=== PATIENT | male | born 1925 | race Caucasian/White ===

== ENCOUNTER 2016-10-16 10:49 | Inpatient (IN) | payer MEDICARE ==
[~2016-10-16] VITALS: Ht 167.6 cm; Wt 70.0 kg
[2016-11-03] MEDS ORDERED: LEVO50TA4 PO (11:42)
[2016-11-03] MEDS ORDERED: TAMS0.4C4 PO (11:42)
[2016-11-03] MEDS ORDERED: OXYC1CAP PO (11:42)
[2016-11-03] MEDS ORDERED: IBUP200T2 PO (11:42)
[2016-11-03] MEDS ORDERED: LOVA40TA PO (11:42)
[2016-11-03] MEDS ORDERED: AMIT1TAB79 PO (11:42)
[2016-11-03] MEDS ORDERED: D31000TA PO (11:42)
[2016-11-03] MEDS ORDERED: MORP1TAB24 PO (11:42)
[2016-11-03] MEDS ORDERED: MULT-135 PO (11:42)
[2016-11-04 09:29] VITALS: BP 164/78; PULSE 74; RESP 18; TEMP 97.5; O2SAT 100
[2016-11-04] MEDS ORDERED: METOPROLOL TARTRATE 25 MG TAB PO PRN (09:30)
[2016-11-04] MEDS ORDERED: LACTATED RINGER'S 1000 ML IV SCH (09:30)
[2016-11-04] MEDS ORDERED: SODIUM CHLORID 0.9% 500 ML IV SCH (09:30)
[2016-11-04] MEDS ORDERED: INSULIN HUMAN REGULAR 1,000 UNITS/10 ML VIAL SQ PRN (09:30)
--- NOTE | 2016-11-04 09:35 | MH ---
cc: JR BLUM DATE OF ADMISSION 11/04/2016 ADMISSION DIAGNOSIS Left hip osteoarthritis HISTORY This is an 89-year-old male with severe left hip pain and difficulty with ambulation. The patient has evidence of collapse of the left femoral head and signs likely consistent with avascular necrosis. The patient presents for surgical treatment. PAST MEDICAL HISTORY, SOCIAL HISTORY AND FAMILY HISTORY, REVIEW OF SYSTEMS See attached notes. PHYSICAL EXAMINATION An elderly male in severe distress with his left hip. HEENT: Normocephalic, atraumatic. Pupils equal, round, reactive to light and accommodation. Extraocular motions intact. NECK: Supple. CHEST: Clear. HEART: Regular rate and rhythm. ABDOMEN: Soft, nontender, normoactive bowel sounds. MUSCULOSKELETAL: Left hip pain with range of motion especially with internal and external rotation, shortening left leg compared to the right is seen. Mild flexion contracture. NEUROLOGIC AND VASCULAR: Examinations are within normal limits. IMPRESSION Osteoarthritis of the left hip. PLAN Left total hip replacement arthroplasty, direct anterior exposure. CONSENT The risks of surgery including infection, bleeding, loss of motion, continued pain, need for further surgery, neurologic and vascular injury, the patient understands these issues and wishes to press on with surgery as outlined above. MD JOHN Wing/MANUELA /10:43 PM /9:31 AM
[2016-11-04] MEDS ORDERED: VANCOMYCIN HCL 1000 MG VIAL ONE (09:49)
[2016-11-04] MEDS ORDERED: SODIUM CHLOR 0.9% 250 ML INJ 250 ML ONE (09:50)
[2016-11-04] MEDS: SODIUM CHLORIDE 0.9% IV SCH ×2 (10:00→12:17)
[2016-11-04] MEDS: TRANEXAMIC ACID IV SCH ×2 (10:00→12:17)
[2016-11-04] MEDS: POVIDONE IODINE 7.5% SCRUB 118 ML BOTTLE TOP SCH (10:00)
[2016-11-04] MEDS: EXPAREL PERI-ARTICULAR INJECTION (TOTAL VOL. 60 ML) P-ARTICULR SCH ×4 (10:00→12:33)
[2016-11-04] MEDS ORDERED: VANCOMYCIN 1000 MG/NS 250 ML (for <70 kg) IV SCH ×2 (10:00)
[2016-11-04] MEDS ORDERED: ceFAZolin 2 GM PREMIX 50 ML IV SCH (10:00)
[2016-11-04] MEDS ORDERED: GENTAMICIN SULFATE 80 MG/2 ML VIAL ONE (10:45)
[2016-11-04] MEDS ORDERED: PHENYLEPH/NS 1000 MCG/10 ML SYR IV ONE (11:00)
[2016-11-04] MEDS ORDERED: LACTATED RINGER'S 1000 ML INJ 1,000 ML IV ONE (11:00)
[2016-11-04] MEDS ORDERED: ePHEDrine/NS 50 MG/5 ML SYR IV ONE (11:00)
[2016-11-04] MEDS ORDERED: PROPOFOL 200 MG/20 ML AMP IV ONE (11:00)
--- NOTE | 2016-11-04 14:24 | PD.OP ---
cc: Cody Padilla MD Operative Report Date of Surgery: Nov 04, 2016 Preoperative Diagnosis: Avascular necrosis, left hip. Osteoarthritis left hip, severe Postoperative Diagnosis: Same Procedure: Left total hip replacement arthroplasty, direct anterior exposure Anesthesia: Gen. Surgeon: Cody Padilla English As A Second Language Instructor(s): INES Winslow Operation and Findings: EBL: 400 cc INDICATION: This patient presents with significant hip pain related to severe osteoarthritis of the left hip with some evidence of avascular necrosis.. Despite extensive conservative care this patient continues to be painful and now presents for surgical treatment. NOTE: Padmini Winslow PA-C was present for the entire surgical procedure as my sugar laboratory assistant. In my medical opinion her skill and care was necessary for the proper management of this patient. COMPONENTS: COMPANY: [employer] CUP: Saline, 54 mm, 100 series, gription surface LINER: Altrx 36 mm, neutral STEM: Corail, size 11, standard offset, hydroxyapatite-coated HEAD: +12 mm, 36 mm, 12/14 taper PROCEDURE: This patient was brought to the operating room and anesthetized in the supine position and positioned on the fracture table with both legs held extended. The left hip and leg was scrubbed with alcohol followed by Hibiclens followed by ChloraPrep and draped sterilely. Antibiotics were given within routine time window and a timeout was done. A 4 inch incision was made starting 2 cm distal and 2 cm lateral to the anterior superior iliac spine. The fascia tara was opened longitudinally. The interval between the fascia tara and the rectus was opened down to the capsule of the hip joint. Retractors were positioned allowing good visualization of the capsule. This was opened longitudinally and flaps were created. Stay sutures were utilized. Exposure was excellent. The neck was cut at the proper location using fluoroscopy as a guide. The head was removed. Deep retractors were positioned allowing good visualization of the acetabulum. Acetabulum was deepened down to the floor starting with a proper size reamer and reaming up to 53 mm. A trial was utilized. Fluoroscopy was used to check position and confirmed satisfactory alignment. The rim was reamed with a 54 mm reamer and the final cup was positioned in approximately 20 of anteversion and 40-45 of abduction. Position was satisfactory. A single hole eliminator was positioned followed by the final liner. The lifting hook was utilized. The leg was dropped to the floor, maximally externally rotated and brought across the midline. Retractors were positioned. A box osteotome was utilized followed by progressive broaching to the proper stem size. Trial reduction showed excellent alignment and fit. With 60 of external rotation the leg was dropped to the floor without evidence of anterior subluxation. The wound was irrigated. The final stem was inserted and was found to be very stable. The final reduction using the final head. Stability was as previously noted. Intraoperative x-rays were taken. The wound was irrigated copiously. Hemostasis was controlled. Local anesthesia was utilized. The capsule was repaired with #2 Tycron sutures. The fascia tara was repaired with running 0 PDS on a loop. Subcutaneous tissue was approximated with 2-0 Vicryl and skin with running intradermal 3-0 Vicryl followed by Steri-Strips. A sterile dressing was applied. The patient was awakened and taken to the recovery room in satisfactory condition. FINDINGS: There was severe osteoarthritis of the left hip. Acetabular dysplasia was noted. A large central osteophyte was removed with the reamers allowing satisfactory positioning of the acetabular component. No complication was appreciated Cody Padilla MD Nov 04, 2016 14:24
[2016-11-04] MEDS ORDERED: XARE10TA PO (14:26)
[2016-11-04] MEDS ORDERED: OXYC1TAB63 PO (14:26)
[2016-11-04] MEDS ORDERED: NALOXONE HCL 0.4 MG/ML AMP IV PRN (14:30)
[2016-11-04] MEDS ORDERED: TEMAZEPAM 15 MG CAP PO PRN (14:30)
[2016-11-04] MEDS ORDERED: BISACODYL 10 MG SUPP PR PRN (14:30)
[2016-11-04] MEDS ORDERED: MORPHINE SULFATE 8 MG/ML INJ IV PUSH PRN (14:30)
[2016-11-04] MEDS ORDERED: ONDANSETRON HCL 4 MG/2 ML VIAL IVP PRN (14:30)
[2016-11-04] MEDS ORDERED: SODIUM CHLORIDE 0.9% FLUSH 5 ML FLUSH IVF PRN (14:30)
[2016-11-04] MEDS ORDERED: Post-op Orders (for Pharmacy) MISC XX ONE (14:30)
[2016-11-04] MEDS ORDERED: oxyCODONE/ACETAMINOPHEN 5 MG/325 MG TAB PO PRN (14:30)
[2016-11-04] MEDS ORDERED: ALUMINUM/MAGNESIUM/SIMETH 30 ML CUP PO PRN (14:30)
--- NOTE | 2016-11-04 15:09 | RADRPT ---
EXAM DATE/TIME: 11/04/2016 12:58 [facility] COMPARISON: No previous studies available for comparison. INDICATIONS : Left anterior hip replacement. MEDICAL HISTORY : Hypertension. SURGICAL HISTORY : Total hip replacement, right. ENCOUNTER: Initial ACUITY: 1 day PAIN SCORE: Non-responsive. LOCATION: Left hip. FINDINGS: Two views from the OR have been obtained. There is a bipolar hip prosthesis. This is labeled left. This appears in good position. Skin heather are seen. CONCLUSION: Successful placement of a bipolar hip prosthesis. Trevor Cedeno MD on November 04, 2016 at 15:00 Board Certified Radiologist. This report was verified electronically.
[2016-11-04] MEDS ORDERED: MORPHINE SULFATE 30 MG/30 ML PCA IV SCH (16:00)
[2016-11-04] MEDS: LACTATED RINGER'S 1000 ML INJ 1,000 ML IV SCH (16:00)
[2016-11-04] MEDS ORDERED: DO NOT ADM ANY ANTICOAGULANT DRUGS XX PRN (16:00)
[2016-11-04] MEDS ORDERED: *morphine SULFATE 8 MG/ML PERIprocedure ONLY ONE (17:49)
[2016-11-04 20:02] VITALS: BP 164/73; PULSE 86; RESP 18; TEMP 96.4; O2SAT 100
[2016-11-04] MEDS: SODIUM CHLORIDE 0.9% FLUSH 5 ML FLUSH IVF SCH (21:00)
[2016-11-04] MEDS: PCA - TOTAL MG MORPHINE DELIVERED PER SHIFT SCH (22:00)
[2016-11-04] MEDS: TAMSULOSIN HCL 0.4 MG CAP PO SCH (22:45)
[2016-11-04] MEDS: AMITRIPTYLINE HCL 100 MG TAB PO SCH (22:45)
[2016-11-05] VITALS (7 sets, daily range): BP systolic 103–124; BP diastolic 53–64; PULSE 72–89; RESP 16–18; TEMP 96–99.7; O2SAT 97–100
[2016-11-05] MEDS: LACTATED RINGER'S 1000 ML INJ 1,000 ML IV SCH ×2 (04:30→17:47)
[2016-11-05] MEDS: LEVOTHYROXINE SODIUM 50 MCG TAB PO SCH (05:04)
[2016-11-05] MEDS: PCA - TOTAL MG MORPHINE DELIVERED PER SHIFT SCH (05:08)
[2016-11-05 06:57] LABS: HEMATOCRIT 26.6 % (39.0-51.0); REVIEW FLAG FINAL
[2016-11-05] MEDS: MORPHINE SULFATE 15 MG CONTROLLED RELEASE TAB PO SCH (09:00)
[2016-11-05] MEDS: PRAVASTATIN SOD 40 MG TAB PO SCH (09:17)
[2016-11-05] MEDS: SODIUM CHLORIDE 0.9% FLUSH 5 ML FLUSH IVF SCH ×2 (09:17→21:00)
[2016-11-05] MEDS: POVIDONE IODINE 7.5% SCRUB 118 ML BOTTLE TOP SCH (09:17)
[2016-11-05] MEDS: MULTIVITAMIN TAB PO SCH (09:17)
[2016-11-05] MEDS ORDERED: WALKER WHEELS/F1 MIS (12:30)
[2016-11-05] MEDS ORDERED: MISC-163 (12:30)
--- NOTE | 2016-11-05 13:15 | PD.ORT.PN ---
Subjective Subjective Remarks Somewhat groggy. Spoke freely but closed eyes frequently. Leg pain moderately controlled with moderate aching. No new radiating leg pain. Tolerating liquids. Urinating well. No CP or SOB. Objective Vitals Vital Signs Date Time Temp Pulse Resp B/P Pulse Ox O2 Delivery O2 Flow Rate FiO2 11/05/16 08:00 96.0 73 18 103/53 100 11/05/16 04:06 96.0 79 17 103/53 97 11/05/16 00:01 96.0 89 17 124/64 99 11/04/16 20:02 96.4 86 18 164/73 100 11/04/16 18:30 98.0 97 15 119/76 99 Nasal Cannula 3 11/04/16 18:15 81 15 159/83 99 Nasal Cannula 3 11/04/16 17:45 79 17 152/80 99 Nasal Cannula 3 11/04/16 17:15 75 15 153/77 99 Nasal Cannula 3 11/04/16 16:15 68 16 143/73 99 Nasal Cannula 3 11/04/16 16:03 15 11/04/16 15:45 67 16 138/68 100 Nasal Cannula 3 11/04/16 15:30 66 15 127/64 100 Nasal Cannula 3 11/04/16 15:15 66 15 129/62 100 Nasal Cannula 3 11/04/16 15:00 62 15 106/59 99 Nasal Cannula 3 11/04/16 14:45 64 15 104/64 99 Nasal Cannula 3 11/04/16 14:37 97.8 91 15 102/58 99 Nasal Cannula 3 I/O 11/04/16 11/04/16 11/04/16 11/05/16 11/05/16 11/05/16 07:00 15:00 23:00 07:00 15:00 23:00 Intake Total 1800 ml 1198 ml 789 ml Output Total 1000 ml 550 ml 375 ml Balance 800 ml 648 ml 414 ml Intake Oral 240 ml 240 ml IV Total 958 ml 549 ml Other 1800 ml Output Urine Total 600 ml 550 ml 375 ml Estimated Blood Loss 400 ml # Bowel Movements 1 0 Result Diagram: 11/05/16 0606 Objective Remarks Sitting up in bed, groggy no acute distress vss LLE Dressing c/d/i, no drainage, mild swelling, no ecchymosis thigh and calf supple, neg homans +motor at, +sens, +nvi Assessment & Plan Ortho Post Op Day #: 1 Problem List: Assessment and Plan pod#1 s/p L YELITZA, anterior D/C [employer] - change to po pain meds. He was already on morphine and oxycodone preop. Hold dressing changes unless saturated. PT - WBAT LLE. Anterior yelitza precautions. Xarelto 10mg qd. D/C planning, prefers HHC but likely SNF thursday. DME written. Louise Argueta Nov 05, 2016 13:14
[2016-11-05] MEDS: RIVAROXABAN 10 MG TAB PO SCH (14:00)
[2016-11-05] MEDS: oxyCODONE/ACETAMINOPHEN 5 MG/325 MG TAB PO PRN (17:47)
[2016-11-05] MEDS ORDERED: TAMSULOSIN HCL 0.4 MG CAP PO ONE (20:15)
[2016-11-05] MEDS: AMITRIPTYLINE HCL 100 MG TAB PO SCH (21:07)
[2016-11-05] MEDS: DOCUSATE SODIUM 100 MG CAP PO SCH (21:07)
[2016-11-05] MEDS: TAMSULOSIN HCL 0.4 MG CAP PO SCH (21:10)
[2016-11-06] VITALS (7 sets, daily range): BP systolic 117–153; BP diastolic 58–73; PULSE 79–85; RESP 17–20; TEMP 96–97.4; O2SAT 96–99
[2016-11-06 05:21] LABS: HEMATOCRIT 24.8 % (39.0-51.0); REVIEW FLAG FINAL
[2016-11-06] MEDS: LEVOTHYROXINE SODIUM 50 MCG TAB PO SCH (06:24)
[2016-11-06] MEDS: SODIUM CHLORIDE 0.9% FLUSH 5 ML FLUSH IVF SCH ×2 (09:00→20:11)
--- NOTE | 2016-11-06 09:10 | HHI.DCPOC ---
Discharge Care Plan Diagnosis: (1) Left hip pain (2) Osteoarthritis of left hip Your Health Problems Are: Incision/Drains Goals to Promote Your Health * To prevent worsening of your condition and complications * To maintain your health at the optimal level Directions to Meet Your Goals Take your medications as prescribed Follow your dietary instruction Follow activity as directed Keep your appointments as scheduled Take your immunizations and boosters as scheduled If your symptoms worsen call your PCP, if no PCP go to Urgent Care Center or Emergency Room Smoking is Dangerous to Your Health. Avoid second hand smoke Call the 24-hour hour crisis hotline for domestic abuse at Louise Argueta Nov 06, 2016 09:10
--- NOTE | 2016-11-06 09:12 | HHI.DS ---
Discharge Summary Admission Date Nov 04, 2016 at 08:31 Discharge Date: Nov 07, 2016 Admitting Diagnosis see below Diagnosis: (1) Left hip pain Diagnosis: Principal (2) Osteoarthritis of left hip Diagnosis: Principal Procedures Left total hip arthroplasty, Direct anterior approach Brief History This is a 89 year old male patient with a long history of left hip pain. He sought out medial treatment and imaging studies were performed. He was found to have significant arthritis of the left hip. Conservative measures were pursued for a period of time but he continued to decline. Surgical treatment was recommended and he elected to move forward with total hip arthroplasty. CBC/BMP: 11/06/16 0449 Significant Findings Laboratory Tests Test 11/05/16 11/06/16 06:06 04:49 Hemoglobin 8.9 GM/DL 8.4 GM/DL (13.0-17.0) (13.0-17.0) Hematocrit 26.6 % 24.8 % (39.0-51.0) (39.0-51.0) PE at Discharge Sitting up in bed, groggy no acute distress vss LLE Dressing c/d/i, no drainage, mild swelling, no ecchymosis thigh and calf supple, neg homans +motor at, +sens, +nvi Hospital Course Surgical treatment was performed on the day of admission without complication. He recovered well in PACU and was transferred to the orthopaedic floor. Pain was controlled with IV and oral medications. DVT prophylaxis was initiated pod# 1. Patient appeared sedated pod#1 so IV medications were discontinued. He was compliant with physical therapy and all total hip precautions. After 3 days he was found to be stable and discharged to group home and instructed to pursue a high fiber diet and to continue therapy. Pt Condition on Discharge: Stable Discharge Disposition: Discharge to SNF Discharge Instructions Diet Instructions: As Tolerated, No Restrictions, High Fiber Diet Activities You Can Perform: Weight Bearing as Rj Activities to Avoid: Strenuous Activity New Medications: 3-in-1 Bedside Toilet (3-in-1 Bedside Toilet) 1 Mis Mis 1 EA .ROUTE DIRECTED #1 EA Walker with Front Wheels (Walker with Front Wheels) 1 Mis Mis 1 EA .ROUTE DIRECTED #1 Ref 0 EA Oxycodone-Acetaminophen (Oxycodone-Acetaminophen) 5-325 mg Tab 1 TAB PO Q4H PRN PAIN LESS THAN 5 ON SCALE #60 TAB Rivaroxaban (Xarelto) 10 Mg Tab 10 MG PO Q24H Prevent Blood Clot #25 TAB Continued Medications: Amitriptyline HCl (Elavil) 25 Mg Tab 100 MG PO HS Cholecalciferol (D3) 1,000 Unit Tab 1 TAB PO DAILY Levothyroxine (Levothyroxine) 50 Mcg Tab 50 MCG PO DAILY Thyroid #30 Ref 0 TAB Lovastatin (Lovastatin) 40 Mg Tab 40 MG PO DAILY Cholesterol Management #30 Ref 0 TAB Morphine ER (Morphine ER) 15 Mg Tab 15 MG PO DAILY Pain Management Ref 0 TAB Multiple Vitamin (Multi Vitamin) 1 Tab Tab 1 TAB PO DAILY TAB Oxycodone (Oxycodone) 5 Mg Cap 5 MG PO Q8H PRN PAIN Ref 0 CAP Tamsulosin (Tamsulosin) 0.4 Mg Cap 0.4 MG PO HS Manage Prostate Problems #30 Ref 0 CAP Discontinued Medications: Ibuprofen (Ibuprofen) 200 Mg Tab 200 MG PO TID PRN PAIN SCALE 1 TO 10 Ref 0 TAB Louise Argueta Nov 06, 2016 09:12
[2016-11-06] MEDS: PRAVASTATIN SOD 40 MG TAB PO SCH (09:13)
[2016-11-06] MEDS: DOCUSATE SODIUM 100 MG CAP PO SCH ×2 (09:13→20:11)
[2016-11-06] MEDS: TAMSULOSIN HCL 0.4 MG CAP PO SCH ×2 (09:13→20:11)
[2016-11-06] MEDS: MULTIVITAMIN TAB PO SCH (09:13)
--- NOTE | 2016-11-06 09:16 | PD.ORT.PN ---
Subjective Subjective Remarks Less groggy but still appears sedated. RN states he had an episode of signfiicant confusion last night. Again he spoke freely but closed eyes frequently during conversation. Leg pain controlled when in bed. Most discomfort is with transitions and PT. Apparently he was retaining urine yesterday so patient was straight cath'd. We placed him on Flomax daily. He is doing much better today and urinating well. No CP or SOB. Objective Vitals Vital Signs Date Time Temp Pulse Resp B/P Pulse Ox O2 Delivery O2 Flow Rate FiO2 11/06/16 09:05 96 21 11/06/16 08:00 96.7 80 18 121/65 99 11/06/16 07:35 Room Air 11/06/16 00:30 97.4 85 17 117/58 98 11/05/16 20:00 99.7 78 16 117/61 98 11/05/16 16:00 98.8 80 18 110/55 99 11/05/16 12:46 98 Nasal Cannula 2.00 11/05/16 12:00 96.0 72 18 122/56 98 I/O 11/05/16 11/05/16 11/05/16 11/06/16 11/06/16 11/06/16 07:00 15:00 23:00 07:00 15:00 23:00 Intake Total 789 ml 480 ml 904 ml Output Total 375 ml 90 ml 100 ml Balance 414 ml 390 ml 804 ml Intake Oral 240 ml 480 ml 480 ml IV Total 549 ml 424 ml Output Urine Total 375 ml 90 ml 100 ml # Voids 3 # Bowel Movements 0 0 0 Result Diagram: 11/06/16 0449 Procedures Left total hip arthroplasty, Direct anterior approach Objective Remarks Laying in bed, somewheat groggy, answers questions but eyes close frequently, no acute distress vss LLE Dressing c/d/i, no drainage, mild swelling, no ecchymosis thigh and calf supple, neg homans +motor at, +sens, +nvi Assessment & Plan Ortho Post Op Day #: 2 Problem List: (1) Left hip pain (2) Osteoarthritis of left hip Assessment and Plan pod#2 s/p L YELITZA, anterior Appears to be doing well though still somewhat sedated. At this point he is only taking his preop pain medications when include PO morphine and oxycodone. Hg 8.4 (down from 8.9) - due to age, lethargy, and episode of hypotension last night we will transfuse with 1 unit of PRBCS. Repeat hg/hct tomorrow. Hold dressing changes unless saturated. PT - WBAT LLE. Anterior yelitza precautions. Xarelto 10mg qd. D/C planning - though he prefers HHC I am not convinced that would be safe considering his lack of lucidity and episode of confusion. D/C likely thursday - HHC vs. SNF. He states he has a son and at home. DME written. Louise Argueta Nov 06, 2016 09:16
[2016-11-06] MEDS: MORPHINE SULFATE 15 MG CONTROLLED RELEASE TAB PO SCH (09:17)
[2016-11-06] MEDS: POVIDONE IODINE 7.5% SCRUB 118 ML BOTTLE TOP SCH (09:17)
--- NOTE | 2016-11-06 09:22 | HHI.FF ---
Face to Face Verification Diagnosis: (1) Left hip pain (2) Osteoarthritis of left hip Physical Therapy Gait training, Safety evaluation, Transfer training, bed to chair Hip: Total hip, Protocol: Left, Progress to weight bearing Left LE Weight Bearing: WB as tolerated Additional Instructions PT 5 days/wk for 2 weeks. WBAT Left LE. Anterior kira precautions. Walker as needed. Nursing RN Days per Week: 2 x Week(s): 1 Dressing Changes: Do not change dressing Additional Instructions Vitals assessment, dressing assessment - do not change unless saturated. Ok to shower pod#6 if kept sealed and dry. I have seen patient Trevor FranzJr milagros on 11/06/16. My clinical findings support the need for the requested home health care services because: Limited ability to care for self High risk of falls I certify that my clinical findings support that this patient is homebound because: Post-op weakness Unsteady gait/balance Louise Argueta Nov 06, 2016 09:22
[2016-11-06] MEDS: oxyCODONE/ACETAMINOPHEN 5 MG/325 MG TAB PO PRN (14:14)
[2016-11-06] MEDS: RIVAROXABAN 10 MG TAB PO SCH (14:14)
[2016-11-06] MEDS: LACTATED RINGER'S 1000 ML INJ 1,000 ML IV SCH (17:08)
[2016-11-06] MEDS: MAGNESIUM HYDROXIDE SUSP 30 ML CUP PO PRN (20:11)
[2016-11-06] MEDS: AMITRIPTYLINE HCL 100 MG TAB PO SCH (20:11)
[2016-11-07] VITALS: BP 146/81; PULSE 78; RESP 20; TEMP 98.4; O2SAT 97
[2016-11-07] MEDS: LACTATED RINGER'S 1000 ML INJ 1,000 ML IV SCH ×2 (03:18→19:00)
[2016-11-07 05:07] LABS: REVIEW FLAG FINAL
[2016-11-07] MEDS: LEVOTHYROXINE SODIUM 50 MCG TAB PO SCH (05:18)
[2016-11-07 08:00] VITALS: BP 157/83; PULSE 83; RESP 18; TEMP 97.6; O2SAT 95
[2016-11-07] MEDS: MORPHINE SULFATE 15 MG CONTROLLED RELEASE TAB PO SCH (08:48)
[2016-11-07] MEDS: DOCUSATE SODIUM 100 MG CAP PO SCH ×2 (08:48→21:59)
[2016-11-07] MEDS: MULTIVITAMIN TAB PO SCH (08:49)
[2016-11-07] MEDS: SODIUM CHLORIDE 0.9% FLUSH 5 ML FLUSH IVF SCH ×2 (08:49→21:00)
[2016-11-07] MEDS: TAMSULOSIN HCL 0.4 MG CAP PO SCH ×2 (08:49→21:59)
[2016-11-07] MEDS: PRAVASTATIN SOD 40 MG TAB PO SCH (08:49)
[2016-11-07] MEDS: MAGNESIUM HYDROXIDE SUSP 30 ML CUP PO PRN (08:49)
--- NOTE | 2016-11-07 09:27 | PD.ORT.PN ---
Subjective Subjective Remarks Grogginess the same as previous interactions. Apparently he was interacting with the staff yesterday after he received the blood but has been more lethargic and groggy today. Again he spoke freely but closed eyes frequently during conversation. He states his left hip pain is well controlled. No new radiating leg pain. He continues to urinate well. No CP or SOB. Objective Vitals Vital Signs Date Time Temp Pulse Resp B/P Pulse Ox O2 Delivery O2 Flow Rate FiO2 11/07/16 08:00 97.6 83 18 157/83 95 11/07/16 06:46 Room Air 11/07/16 00:00 98.4 78 20 146/81 97 11/06/16 20:00 97.2 84 20 153/73 96 11/06/16 16:00 96.0 82 18 128/66 99 11/06/16 11:00 97.3 79 18 150/69 98 11/06/16 10:45 97.2 80 18 118/58 96 I/O 11/06/16 11/06/16 11/06/16 11/07/16 11/07/16 11/07/16 07:00 15:00 23:00 07:00 15:00 23:00 Intake Total 1205 ml 280 ml 220 ml Output Total 1050 ml 450 ml 600 ml Balance 155 ml -170 ml -380 ml Intake Oral 720 ml 280 ml 220 ml IV Total 160 ml Packed Cells 325 ml Output Urine Total 1050 ml 450 ml 600 ml # Bowel Movements 0 0 0 Result Diagram: 11/07/16 0434 Procedures Left total hip arthroplasty, Direct anterior approach Objective Remarks Laying in bed, somewheat groggy, answers questions but eyes closed, no acute distress vss BP 157/83 LLE Dressing c/d/i, no drainage, mild swelling, no ecchymosis thigh and calf supple, neg homans +motor at, +sens, +nvi Assessment & Plan Ortho Post Op Day #: 3 Problem List: (1) Left hip pain (2) Osteoarthritis of left hip Assessment and Plan pod#3 s/p L YELITZA, anterior Continues to act somewhat groggy and lethargic but no acute distress. RN states he did better after the transfusion yesterday. Hg 9.5 today. Ok to d/c to SNF today. Patient prefers Home but I do not believe that would be in his best interest considering his age, lethargy and slow progress in PT. Continue on po pain meds (morphine and oxyc preop) Hold dressing changes unless saturated. PT - WBAT LLE. Anterior yelitza precautions. Xarelto 10mg qd. F/U in 2 weeks as scheduled. DME written. Louise Argueta Nov 07, 2016 09:27
[2016-11-07 12:00] VITALS: BP 158/81; PULSE 84; RESP 18; TEMP 97.5; O2SAT 97
[2016-11-07] MEDS: RIVAROXABAN 10 MG TAB PO SCH (13:30)
[2016-11-07] MEDS: oxyCODONE/ACETAMINOPHEN 5 MG/325 MG TAB PO PRN (15:16)
[2016-11-07 16:00] VITALS: BP 159/79; PULSE 82; RESP 18; TEMP 97.2; O2SAT 99
[2016-11-07 19:00] VITALS: BP 120/67; PULSE 78; RESP 16; TEMP 96.1; O2SAT 98
[2016-11-07] MEDS: AMITRIPTYLINE HCL 100 MG TAB PO SCH (21:59)
[2016-11-07 23:40] VITALS: BP 131/71; PULSE 88; RESP 16; TEMP 98.4; O2SAT 98
[2016-11-08] MEDS: oxyCODONE/ACETAMINOPHEN 5 MG/325 MG TAB PO PRN ×2 (00:52→06:06)
[2016-11-08] MEDS: LEVOTHYROXINE SODIUM 50 MCG TAB PO SCH (06:06)
--- NOTE | 2016-11-08 07:05 | PD.ORT.PN ---
Subjective Subjective Remarks Doing well. Positive bowel movement Objective Vitals Vital Signs Date Time Temp Pulse Resp B/P Pulse Ox O2 Delivery O2 Flow Rate FiO2 11/07/16 23:40 98.4 88 16 131/71 98 11/07/16 19:00 96.1 78 16 120/67 98 11/07/16 16:00 97.2 82 18 159/79 99 11/07/16 12:00 97.5 84 18 158/81 97 11/07/16 08:00 97.6 83 18 157/83 95 I/O 11/07/16 11/07/16 11/07/16 11/08/16 11/08/16 11/08/16 07:00 15:00 23:00 07:00 15:00 23:00 Intake Total 220 ml 825 ml 240 ml Output Total 600 ml 200 ml Balance -380 ml 625 ml 240 ml Intake Oral 220 ml 825 ml 240 ml Output Urine Total 600 ml 200 ml # Voids 4 3 # Bowel Movements 0 1 0 Result Diagram: 11/07/16 0434 Procedures Left total hip arthroplasty, Direct anterior approach Objective Remarks no acute distress LLE Dressing c/d/i, no drainage, mild swelling, no ecchymosis thigh and calf supple, neg homans +motor at, +sens, +nvi Assessment & Plan Problem List: (1) Left hip pain (2) Osteoarthritis of left hip Assessment and Plan pod#4 s/p L YELITZA, anterior Ok to d/c to SNF today. Patient prefers Home but I do not believe that would be in his best interest considering his age, lethargy and slow progress in PT. Continue on po pain meds (morphine and oxyc preop) Hold dressing changes unless saturated. PT - WBAT LLE. Anterior yelitza precautions. Xarelto 10mg qd. F/U in 2 weeks as scheduled. DME written. SHAHZAD PRYOR PA-C Nov 08, 2016 07:05
[2016-11-08] MEDS: LACTATED RINGER'S 1000 ML INJ 1,000 ML IV SCH ×2 (07:30→20:00)
[2016-11-08 08:58] VITALS: BP 116/62; PULSE 72; RESP 17; TEMP 96.8; O2SAT 96
[2016-11-08] MEDS: MORPHINE SULFATE 15 MG CONTROLLED RELEASE TAB PO SCH (09:00)
[2016-11-08 12:00] VITALS: BP 102/57; PULSE 61; RESP 17; TEMP 96.8; O2SAT 97
[2016-11-08 12:27] LABS: BLOOD GAS BASE EXCESS 2.1 mmol/L (-2-2); BLOOD GAS CARBOXYHEMOGLOBIN 1.8 % (0-4); BLOOD GAS HCO3 26 mmol/L (22-26); BLOOD GAS METHEMOGLOBIN 0.6 % (0-2); BLOOD GAS O2 HGB SATURATION 95 % (90-100); BLOOD GAS OXYGEN CONTENT 11.8 Vol % (12.0-20.0); BLOOD GAS PCO2 39 mmHg (38-42); BLOOD GAS PO2 87 mmHg (61-120); BLOOD GAS TOTAL HGB 8.7 G/DL (12.0-16.0); CRITICAL VALUE NO; DRAW SITE RT RADIAL; FIO2 21 %; NUMBER OF ARTERIAL PUNCTURES 1; OXYGEN DEVICE ROOM AIR; TEMP CORR TO 98.6; ULNAR PULSE PRESENT
[2016-11-08 12:28] LABS: STAT YES
[2016-11-08] MEDS ORDERED: NALOXONE HCL 0.4 MG/ML AMP IV ONE (12:30)
[2016-11-08] MEDS: TAMSULOSIN HCL 0.4 MG CAP PO SCH ×2 (12:33→22:24)
[2016-11-08] MEDS: PRAVASTATIN SOD 40 MG TAB PO SCH (12:33)
[2016-11-08] MEDS: SODIUM CHLORIDE 0.9% FLUSH 5 ML FLUSH IVF SCH ×2 (12:34→22:25)
[2016-11-08] MEDS: MULTIVITAMIN TAB PO SCH (12:34)
[2016-11-08] MEDS: DOCUSATE SODIUM 100 MG CAP PO SCH ×2 (12:34→22:24)
[2016-11-08] MEDS: RIVAROXABAN 10 MG TAB PO SCH (14:00)
[2016-11-08 16:00] VITALS: BP 114/66; PULSE 66; RESP 16; TEMP 97.3; O2SAT 99
[2016-11-08 20:00] VITALS: BP 142/81; PULSE 76; RESP 20; TEMP 98; O2SAT 92
[2016-11-08] MEDS: AMITRIPTYLINE HCL 100 MG TAB PO SCH (22:24)
[2016-11-08] MEDS: MAGNESIUM HYDROXIDE SUSP 30 ML CUP PO PRN (22:24)
[2016-11-09] VITALS: BP 146/74; PULSE 74; RESP 20; TEMP 99.5; O2SAT 96
[2016-11-09] MEDS: LEVOTHYROXINE SODIUM 50 MCG TAB PO SCH (05:27)
[2016-11-09] MEDS: LACTATED RINGER'S 1000 ML INJ 1,000 ML IV SCH (07:03)
--- NOTE | 2016-11-09 07:04 | PD.ORT.PN ---
Subjective Subjective Remarks Doing well. Positive bowel movement Objective Vitals Vital Signs Date Time Temp Pulse Resp B/P Pulse Ox O2 Delivery O2 Flow Rate FiO2 11/09/16 00:00 99.5 74 20 146/74 96 11/08/16 20:00 98.0 76 20 142/81 92 11/08/16 16:00 97.3 66 16 114/66 99 11/08/16 12:00 96.8 61 17 102/57 97 11/08/16 08:58 96.8 72 17 116/62 96 I/O 11/08/16 11/08/16 11/08/16 11/09/16 11/09/16 11/09/16 07:00 15:00 23:00 07:00 15:00 23:00 Intake Total 240 ml 720 ml 1178 ml 240 ml Output Total 400 ml 400 ml Balance 240 ml 720 ml 778 ml -160 ml Intake Oral 240 ml 720 ml 280 ml 240 ml IV Total 898 ml Output Urine Total 400 ml 400 ml # Voids 3 2 # Bowel Movements 0 0 0 0 Result Diagram: 11/07/16 0434 Procedures Left total hip arthroplasty, Direct anterior approach Objective Remarks no acute distress LLE Dressing c/d/i, no drainage, mild swelling, no ecchymosis thigh and calf supple, neg homans +motor at, +sens, +nvi Assessment & Plan Problem List: (1) Left hip pain (2) Osteoarthritis of left hip Assessment and Plan pod#5 s/p L YELITZA, anterior Discharge to rehabilitation today Continue on po pain meds (morphine and oxyc preop) Hold dressing changes unless saturated. PT - WBAT LLE. Anterior yelitza precautions. Xarelto 10mg qd. F/U in 2 weeks as scheduled. DME written. SHAHZAD PRYOR PA-C Nov 09, 2016 07:04
[2016-11-09 08:00] VITALS: BP 145/79; PULSE 84; RESP 18; TEMP 98.5; O2SAT 95
[2016-11-09] MEDS: MORPHINE SULFATE 15 MG CONTROLLED RELEASE TAB PO SCH (08:37)
[2016-11-09] MEDS: TAMSULOSIN HCL 0.4 MG CAP PO SCH (08:38)
[2016-11-09] MEDS: MULTIVITAMIN TAB PO SCH (08:38)
[2016-11-09] MEDS: SODIUM CHLORIDE 0.9% FLUSH 5 ML FLUSH IVF SCH (08:38)
[2016-11-09] MEDS: DOCUSATE SODIUM 100 MG CAP PO SCH (08:38)
[2016-11-09] MEDS: PRAVASTATIN SOD 40 MG TAB PO SCH (08:38)
[2016-11-09] MEDS: MAGNESIUM HYDROXIDE SUSP 30 ML CUP PO PRN (08:38)
[2016-11-09 12:00] VITALS: BP 153/82; PULSE 87; RESP 19; TEMP 97.9; O2SAT 97
[2016-11-09] MEDS: RIVAROXABAN 10 MG TAB PO SCH (12:40)
[2016-11-09] MEDS: oxyCODONE/ACETAMINOPHEN 5 MG/325 MG TAB PO PRN (12:40)
== END 2016-11-09 16:06 | DRG 470 ==
LOC: HSDI 11-04 08:31 → N06B 11-04 18:53
PROVIDERS: ADMIT Orthopaedic Surgery Orthopaedic Surgery of the Spine; ATTEND Orthopaedic Surgery Orthopaedic Surgery of the Spine
PROC: 0SRB02A Replacement of Left Hip Joint with Metal on Polyethylene Synthetic Substitute, Uncemented, Open Approach (ICD-10-PCS; principal; 2016-11-04 11:47)
PROC: 0T9B70Z Drainage of Bladder with Drainage Device, Via Natural or Artificial Opening (ICD-10-PCS; 2016-11-05)
PROC: 30233N1 Transfusion of Nonautologous Red Blood Cells into Peripheral Vein, Percutaneous Approach (ICD-10-PCS; 2016-11-06)
DX: M16.12 Unilateral primary osteoarthritis, left hip (principal); I95.9 Hypotension, unspecified; M87.9 Osteonecrosis, unspecified; R33.9 Retention of urine, unspecified; R53.83 Other fatigue; I10 Essential (primary) hypertension; E78.5 Hyperlipidemia, unspecified; E03.9 Hypothyroidism, unspecified
CPT/HCPCS: 36430; 36600; 73502; 76000; 82805; 85014; 85018; 86850; 86900; 86901; 86920; 94150; C1776; C9290; J0690; J1580; J2270; J2310; J2370; J3010; J3370; J7050; J7120; P9016